=== PATIENT | female | born 1970 | race American Indian/Alaskan Native ===

== ENCOUNTER 2023-01-22 06:35 | Day surgery (SDC) | payer BC, OTHER ==
[~2023-01-22 06:35] MED LIST: Lactated Ringers 1,000 ML IV SCH; Sodium Chloride 0.9% 10 ML Syringe FLUSH PRN; Sodium Chloride 0.9% 2.5 ML Syringe FLUSH PRN; Sodium Chloride 0.9% 20 ML SDV IV PRN
[2023-01-22] MEDS ORDERED: Scopolamine 1.5 MG Transdermal Patch TRDERM PRN (07:07)
[2023-01-22] MEDS ORDERED: Bupivacaine 0.5% 30 ML SDV ONE (07:24)
[2023-01-22] MEDS ORDERED: Bupivacaine 25%/EPINEPHrine/PF 30 ML ONE (07:32)
[2023-01-22] MEDS ORDERED: Ropivacaine 0.5% 5 MG/ML 30 ML SDV ONE (07:33)
[2023-01-22] MEDS ORDERED: fentaNYL 100 MCG/2 ML SDV ONE (07:34)
[2023-01-22] MEDS ORDERED: Ketorolac 30 MG/ML SDV ONE (07:34)
[2023-01-22] MEDS ORDERED: Propofol 200 MG/20 ML SDV ONE (07:34)
[2023-01-22] MEDS ORDERED: Sugammadex Sodium 200 MG/2 ML VIAL ONE (07:34)
[2023-01-22] MEDS ORDERED: Rocuronium Bromide 50 MG/5 ML Syringe ONE (07:34)
[2023-01-22] MEDS ORDERED: Ondansetron 4 MG/2 ML SDV ONE (07:34)
[2023-01-22] MEDS ORDERED: Lidocaine 2% 5 ML SDV ONE ×2 (07:34→09:33)
[2023-01-22] MEDS ORDERED: Dexamethasone 4 MG/ML 5 ML MDV ONE (07:34)
[2023-01-22] MEDS ORDERED: Metoclopramide 10 MG/2 ML SDV IVPUSH PRN (07:42)
[2023-01-22] MEDS ORDERED: Morphine 2 MG/ML SYRINGE IVPUSH PRN (07:42)
[2023-01-22] MEDS ORDERED: HYDROmorphone 1 MG/ML Syringe IVPUSH PRN (07:42)
[2023-01-22] MEDS ORDERED: Albuterol 0.083% 2.5 MG/3 ML Neb Soln NEB PRN (07:42)
[2023-01-22] MEDS ORDERED: Ondansetron 4 MG/2 ML SDV IVPUSH PRN (07:42)
[2023-01-22] MEDS ORDERED: Naloxone 0.4 MG/ML SDV IVPUSH PRN (07:42)
[2023-01-22] MEDS ORDERED: fentaNYL 50 MCG/ML SDV IVPUSH PRN (07:42)
[2023-01-22] MEDS ORDERED: ceFAZolin 2 GM Vial ONE (07:55)
[2023-01-22 10:50] VITALS: BP 134/69; PULSE 70
[2023-01-22] MEDS ORDERED: ceFAZolin 2 GM in Premix Bag 1 BAG IV ONE (12:14)
== END 2023-01-22 12:05 | disposition home or self-care (01) ==
LOC: MW.SDS 06:35
PROVIDERS: ATTEND Surgery
DX: K80.20 Calculus of gallbladder without cholecystitis without obstruction (principal); K76.0 Fatty (change of) liver, not elsewhere classified; D18.09 Hemangioma of other sites; I10 Essential (primary) hypertension; M19.90 Unspecified osteoarthritis, unspecified site; E11.9 Type 2 diabetes mellitus without complications; Z91.048 Other nonmedicinal substance allergy status; Z79.84 Long term (current) use of oral hypoglycemic drugs; Z79.899 Other long term (current) drug therapy
CPT/HCPCS: 47562; 82947; A9270; J0690; J1100; J1885; J2704; J2795; J3010; J3490; J7120; 00790; 64488; J2405

== ENCOUNTER 2024-02-16 14:57 | Emergency (ER) | payer BC, OTHER ==
[2024-02-16] MEDS: traMADol 50 MG Tab PO STA (15:16)
[2024-02-16 16:53] VITALS: BP 132/79; PULSE 86
== END 2024-02-16 16:52 | disposition home or self-care (01) ==
LOC: MW.ED 14:57
DX: S13.4XXA Sprain of ligaments of cervical spine, initial encounter (principal); I10 Essential (primary) hypertension; E11.9 Type 2 diabetes mellitus without complications; Z91.048 Other nonmedicinal substance allergy status; Z79.899 Other long term (current) drug therapy; Z79.84 Long term (current) use of oral hypoglycemic drugs; Z75.8 Other problems related to medical facilities and other health care; V49.40XA Driver injured in collision with unspecified motor vehicles in traffic accident, initial encounter
CPT/HCPCS: 70450; 72125; 99284; A9270; 99283